=== PATIENT | female | born 1970 | race Caucasian/White ===

== ENCOUNTER 2023-10-12 16:34 | Inpatient (IN) | payer BC ==
[~2023-10-12] VITALS: Ht 167.6 cm; Wt 67.1 kg
[2023-10-12 16:35] VITALS: BP_SYST 134; PULSE 111; RESP 19; TEMP 97.7; O2SAT 99
[2023-10-12 17:13] LABS: BASOPHILS % (AUTO) 0.3 % (0.0-2.0); EOSINOPHILS # (AUTO) 0.1 K/uL (0.0-0.4); EOSINOPHILS % (AUTO) 0.6 % (0.0-4.0); HEMATOCRIT 40.7 % (36-48); HEMOGLOBIN 14.1 g/dL (12.0-16.0); LYMPHOCYTES % (AUTO) 13.7 % (20.5-51.5); MEAN CORPUSCULAR HEMOGLOBIN 32 pg (27-31); MEAN CORPUSCULAR HGB CONC 35 % (32-36); MEAN CORPUSCULAR VOLUME 92 fL (79.0-98.0); MONOCYTES # (AUTO) 1.4 K/uL (0.0-1.0); MONOCYTES % (AUTO) 9.7 % (1.7-9.3); NEUTROPHILS # (AUTO) 10.9 K/uL (1.8-7.7); NEUTROPHILS % (AUTO) 75.7 % (40.0-70.0); PLATELET COUNT (AUTO) 223 K/uL (130-430); RED BLOOD CELL COUNT(AUTO) 4.44 MIL/uL (4.2-6.2); RED CELL DISTRIBUTION WIDTH 12.7 % (9.0-15.0); WHITE BLOOD COUNT (AUTO) 14.4 K/uL (4.8-10.8)
[2023-10-12 17:45] LABS: ALBUMIN 3.7 g/dL (3.4-4.8); BILIRUBIN,DIRECT 0.2 mg/dL (0.0-0.3); CALCIUM 8.4 mg/dL (8.4-11.0); CREATININE 0.74 mg/dL (0.55-1.30); POTASSIUM 3.7 mmol/L (3.5-5.1); TOTAL BILIRUBIN 1.2 mg/dL (0.0-1.0); TOTAL PROTEIN, SERUM 7.7 g/dL (6.4-8.3)
[2023-10-12] MEDS: NACL 0.9% 1,000 ML IV ONE ×2 (18:07→19:45)
[2023-10-12] MEDS: MORPHINE 4 MG INJ. 4 MG/ML VIAL IVP ONE (18:08)
[2023-10-12] MEDS: ONDANSETRON HCL 4 MG/2 ML VIAL IVP ONE (18:08)
[2023-10-12 18:14] LABS: BILIRUBIN,URINE NEGATIVE (NEGATIVE); BLOOD, URINE 2+ (NEGATIVE); CLARITY/URINE CLEAR (CLEAR); COLOR,URINE YELLOW (YELLOW); GLUCOSE,URINE NEGATIVE (NEGATIVE); KETONES,URINE 2+ (NEGATIVE); LEUKOCYTE ESTERASE ,URINE NEGATIVE (NEGATIVE); NITRITE, URINE NEGATIVE (NEGATIVE); PROTEIN URINE NEGATIVE (NEGATIVE); UROBILINOGEN,URINE 0.2 (0.2-1.0)
[2023-10-12 18:33] LABS: RBC,URINE 0-3 /HPF (0-3); WBC,URINE 0-3 /HPF (0-3)
[2023-10-12 18:34] LABS: BACTERIA,URINE RARE /HPF (None Seen)
[2023-10-12 18:35] LABS: HCG,QUAL RESULT NEGATIVE (NEGATIVE)
[2023-10-12] MEDS ORDERED: MORPHINE 4 MG INJ. 4 MG/ML VIAL IVP PRN ×3 (19:30→21:15)
[2023-10-12] MEDS: PIPERACILLIN/TAZO 3.375 GM in NS 50 ML IV ONE (19:30)
[2023-10-12] MEDS ORDERED: PIPERACILLIN/TAZOBACTAM 3.375 GM/VIAL (ZOSYN) IV ONE (20:14)
[2023-10-12] MEDS: HYDROmorphone 2 MG/ML VIAL ONE (20:21)
[2023-10-12] MEDS ORDERED: SEVOFLURANE 15 MIN GAS INH ONE (20:30)
[2023-10-12] MEDS ORDERED: DEXAMETHASONE SOD PHOSPHATE 4 MG/ML VIAL ONE (20:30)
[2023-10-12] MEDS ORDERED: GLYCOPYRROLATE 0.2 MG/ML VIAL ONE (20:30)
[2023-10-12] MEDS ORDERED: BUPIVACAINE /PF 0.25% 30 ML VIAL INJ ONE (20:30)
[2023-10-12] MEDS ORDERED: SUCCINYLCHOLINE CHLORIDE 20 MG/ML(QUELICIN) ONE (20:30)
[2023-10-12] MEDS ORDERED: LR 1,000 ML IV.SOLN IV ONE (20:30)
[2023-10-12] MEDS ORDERED: ONDANSETRON HCL 4 MG/2 ML VIAL ONE (20:30)
[2023-10-12] MEDS ORDERED: PROPOFOL 200MG/ 20ML VIAL (DIPRIVAN) IV ONE (20:30)
[2023-10-12] MEDS ORDERED: ePHEDrine sulfate 50 MG/ML VIAL ONE (20:30)
[2023-10-12] MEDS ORDERED: NEOSTIGMINE METHYLSULFATE 1 MG/ML, 10 ML VIAL ONE (20:30)
[2023-10-12] MEDS ORDERED: WATER FOR IRRIGATION,STERILE 1,000 ML IRRIG.SOLN IR ONE (20:30)
[2023-10-12] MEDS ORDERED: NS IRRIG SOLN 1000 ML IR ONE (20:30)
[2023-10-12] MEDS: D5/0.45 NS 1,000 ML IV ONE (20:48)
[2023-10-12] MEDS ORDERED: METOCLOPRAMIDE HCL 10 MG/2 ML VIAL IVP PRN (21:15)
[2023-10-12] MEDS ORDERED: ONDANSETRON HCL 4 MG/2 ML VIAL IVP PRN (21:15)
[2023-10-12 22:45] VITALS: BP_SYST 130; PULSE 82; RESP 20; TEMP 97.7; O2SAT 98
[2023-10-12 23:00] VITALS: BP_SYST 127
[2023-10-13] VITALS (11 sets, daily range): BP systolic 99–128; PULSE 84–107; RESP 18–20; TEMP 98.1–99; O2SAT 96–100
[2023-10-13] MEDS: HYDROmorphone 1 MG/ML INJ. CARTRIDGE IVP PRN (00:40)
[2023-10-13] MEDS: PIPERACILLIN/TAZOBACTAM 3.375 GM/VIAL (ZOSYN) IV ONE (02:46)
[2023-10-13] MEDS: PIPERACILLIN/TAZO 3.375/DEX-IS 50 ML IV SCH (05:27)
[2023-10-13] MEDS: MORPHINE 2 MG/ML INJ. SYRINGE IVP PRN (05:40)
[2023-10-13 15:09] LABS: BASOPHILS % (AUTO) 0.1 % (0.0-2.0); EOSINOPHILS # (AUTO) 0.1 K/uL (0.0-0.4); EOSINOPHILS % (AUTO) 0.7 % (0.0-4.0); HEMATOCRIT 36.2 % (36-48); HEMOGLOBIN 12.5 g/dL (12.0-16.0); LYMPHOCYTES % (AUTO) 19.4 % (20.5-51.5); MEAN CORPUSCULAR HEMOGLOBIN 32 pg (27-31); MEAN CORPUSCULAR HGB CONC 34 % (32-36); MEAN CORPUSCULAR VOLUME 92 fL (79.0-98.0); MONOCYTES # (AUTO) 0.9 K/uL (0.0-1.0); MONOCYTES % (AUTO) 8.7 % (1.7-9.3); NEUTROPHILS # (AUTO) 7.5 K/uL (1.8-7.7); NEUTROPHILS % (AUTO) 71.1 % (40.0-70.0); PLATELET COUNT (AUTO) 198 K/uL (130-430); RED BLOOD CELL COUNT(AUTO) 3.92 MIL/uL (4.2-6.2); RED CELL DISTRIBUTION WIDTH 12.7 % (9.0-15.0); WHITE BLOOD COUNT (AUTO) 10.5 K/uL (4.8-10.8)
== END 2023-10-13 17:46 | disposition home or self-care (01) | DRG 399 ==
LOC: SED 16:34 → SOR 20:16 → SMU 20:17 → SOR 10-13 00:27
PROVIDERS: ADMIT Specialist; ATTEND Specialist
PROC: 0DTJ4ZZ Resection of Appendix, Percutaneous Endoscopic Approach (ICD-10-PCS; principal; 2023-10-12 20:40)
DX: K35.80 Unspecified acute appendicitis (principal); Z88.6 Allergy status to analgesic agent; Z88.8 Allergy status to other drugs, medicaments and biological substances; Z79.899 Other long term (current) drug therapy; Z85.3 Personal history of malignant neoplasm of breast
CPT/HCPCS: 36415; 76376; 80048; 80076; 81000; 81001; 81015; 82948; 83690; 84703; 85025; 86886; 86900; 86901; 87040; 94760; 99285; C1727; J0330; J1100; J1170; J2270; J2405; J2543; J2704; J2710; J3490; J7120